=== PATIENT | male | born 1940 | race Caucasian/White ===

== ENCOUNTER 2018-10-23 05:12 | Inpatient (IN) ==
--- NOTE | 2018-10-20 09:55 | EKG Report ---
Test Performed on : 10/20/2018 09:40:57 AM Test Reason : pat Blood Pressure : / mmHG Vent. Rate : 078 BPM Atrial Rate : 078 BPM P-R Int : 148 ms QRS Dur : 096 ms QT Int : 366 ms P-R-T Axes : 082 007 063 degrees QTc Int : 417 ms Sinus rhythm. with frequent premature ventricular complexes. in a pattern of bigeminy. Otherwise normal ECG No previous ECGs available Confirmed by Javier Bragg MD ([id number]) on 10/21/2018 9:17:58 PM
[2018-10-20 10:23] LABS: HEMOGLOBIN 14.3 g/dL (14.0-18.0); MCH 28.7 PG (27-31); MCV 84.2 FL (81-99); MPV 10.8 FL (7.4-10.4); RBC 4.99 XMIL (4.7-6.1); RDW 20.4 % (11.5-14.5); WBC 9.86 X1000 (4.8-10.8)
[2018-10-20 10:34] LABS: CALCIUM 8.7 mg/dL (8.8-10.2); CREATININE 1.4 mg/dL (0.7-1.2); POTASSIUM 4.2 mmol/L (3.5-5.1)
[2018-10-23] MEDS ORDERED: LR 1,000 ML ONE ×2 (05:59→06:33)
[2018-10-23] MEDS ORDERED: KEFZOL 1 GM/D5W 1 GM/50 ML IVPB ONE (05:59)
[2018-10-23] MEDS ORDERED: ENTEREG ONE (06:02)
[2018-10-23] MEDS ORDERED: FENTANYL ONE (06:21)
[2018-10-23] MEDS ORDERED: DIPRIVAN 1% ONE (06:21)
[2018-10-23] MEDS ORDERED: MARCAINE 0.25% PF/EPI 1:200,000 ONE (06:33)
[2018-10-23] MEDS ORDERED: SODIUM CHLORIDE 0.9% ONE (06:43)
[2018-10-23] MEDS ORDERED: MARCAINE 0.25% ONE (07:00)
[2018-10-23] MEDS ORDERED: EXPAREL 1.3% ONE (07:01)
[2018-10-23] MEDS ORDERED: SODIUM CHLORIDE 0.9% 10 ML ONE ×2 (07:01→07:27)
[2018-10-23] MEDS ORDERED: XYLOCAINE-MPF 2% ONE (07:27)
[2018-10-23] MEDS ORDERED: NORCURON ONE ×2 (07:27→09:05)
[2018-10-23] MEDS ORDERED: DECADRON ONE (07:27)
[2018-10-23] MEDS ORDERED: ZOFRAN ONE (07:27)
[2018-10-23] MEDS ORDERED: EPHEDRINE ONE (07:27)
[2018-10-23] MEDS ORDERED: QUELICIN (DOSE) ONE (07:27)
--- NOTE | 2018-10-23 08:09 | Diag Imaging Result Doc PS360 ---
EXAM: OPERATIVE CHOLANGIOGRAM INDICATION: CHOLECYSTECTOMY LAPAROSCOPIC TECHNIQUE: COMPARISON: None. FINDINGS: A single spot fluoroscopic image of the opacified common bile duct was provided, which was performed during cholecystectomy by Dr. Humberto Desai. The common bile duct appears normal in caliber. No discrete filling defect is identified. There is minimal tortuosity at the distal aspect of the common bile duct as it tapers. IMPRESSION: As above. Please correlate with live fluoroscopic imaging. Electronically signed by Forrest hCavez 10/23/2018 8:08 AM
[2018-10-23 08:48] LABS: URINE SOURCE CATH
[2018-10-23 08:50] LABS: BILIRUBIN URINE NEGATIVE (NEGATIVE); BLOOD URINE SMALL (NEGATIVE); COLOR YELLOW; GLUCOSE URINE NEGATIVE (NEGATIVE); KETONE URINE 10 mg/dL (NEGATIVE); LEUKOCYTES URINE NEGATIVE (NEGATIVE); NITRITE URINE NEGATIVE (NEGATIVE); PROTEIN URINE NEGATIVE (NEGATIVE); SP GRAVITY URINE 1.014; TURBIDITY URINE CLEAR (CLEAR); UROBILINOGEN URINE NORMAL (NORMAL)
[2018-10-23 08:52] LABS: UR EPITHELIAL CELLS <10 /HPF (<10); URINE BACTERIA NEGATIVE /HPF; URINE RBC <10 /HPF (<10); URINE WBC <10 /HPF (<10)
[2018-10-23] MEDS ORDERED: NEOSTIGMINE ONE (09:25)
[2018-10-23] MEDS ORDERED: ROBINUL ONE (09:25)
[2018-10-23] MEDS ORDERED: ULTRAM PO PRN (12:07)
[2018-10-23] MEDS ORDERED: ZOFRAN IV PRN (12:08)
[2018-10-23] MEDS ORDERED: CHLORASEPTIC SPRAY MT PRN (12:52)
[2018-10-23] MEDS: TORADOL IV SCH ×2 (12:58→18:19)
[2018-10-23] MEDS ORDERED: LR 1,000 ML IV SCH (13:00)
--- NOTE | 2018-10-23 14:48 | OPERATIVE NOTE ---
PROCEDURE DATE: 10/23/2018 PREOPERATIVE DIAGNOSES: 1. Chronic cholecystitis with cholelithiasis. 2. Ascending colon cancer. POSTOPERATIVE DIAGNOSES: 1. Chronic cholecystitis with cholelithiasis. 2. Ascending colon cancer. PRINCIPAL PROCEDURES: 1. Laparoscopic cholecystectomy with intraoperative cholangiogram. 2. Robotic-assisted laparoscopic right colon resection with intracorporeal anastomosis. SURGEON: Gayle Desai MD. BIOPHARMACEUTICAL REP: Dr. Marek Sullivan. ANESTHESIA: General in addition to local and a TAP block. ESTIMATED BLOOD LOSS: 75 mL. DRAINS: None. INDICATIONS: Mr. Ronny Prasad is a 78-year-old, white male who was diagnosed with an ascending colon cancer after undergoing colonoscopy per Dr. Alfaro. A CT scan was performed and it documented gallstones but no evidence of metastatic colon cancer. Cholecystectomy with a right colon resection was recommended. FINDINGS: The liver appeared to be normal. His anterior abdominal wall was thin. The gallbladder was chronically inflamed and had at least one stone within it. We did do an intraoperative cholangiogram, which showed free flow of the dye into the duodenum without evidence of extrahepatic stones or obstruction. He had a tumor in the ascending colon just proximal to the cecum. There was no evidence of local spread of this tumor and there was no evidence of metastatic disease in the abdomen. I noticed no enlarged lymph nodes in the mesentery. DESCRIPTION OF PROCEDURE: Dr. Marek Sullivan was present for both of these procedures. He was present throughout the laparoscopic cholecystectomy with intraoperative cholangiogram and he was present throughout the robotic-assisted laparoscopic right colon resection. His presence was necessary for retraction and for instruction on moving along with the right colon. He also helped with fascial and skin closure at the end of the procedure. The patient underwent a bowel prep at home and presented to our outpatient surgery. He went to our robotic room and received IV Invanz. We began with the laparoscopic cholecystectomy. A Calles catheter tube was placed. His abdomen was prepped and draped within a sterile field. His arms were tucked to his side. I made a small incision right at the umbilicus and used a Veress needle to create a pneumoperitoneum. I then used a 12 mm trocar and I placed it through the left rectus muscle just above the umbilicus. A camera was placed through this port and the abdomen was explored for injury. There was none. I placed three other trocars. I placed an 8 mm trocar to the left of the falciform ligament, in the epigastrium under direct vision of the camera. I placed two 5 mm trocars in the right midclavicular and anterior axillary lines. Through our most lateral port, the gallbladder was grasped and retracted superiorly along with the right lobe of the liver. I had to use the spatula cautery and a grasper to take down some adhesions between the underside of the gallbladder and the transverse colon. I then dissected out the triangle of [place]ot using blunt dissection. I identified the cystic duct along its length. It was a long cystic duct. I placed a clip at the cystic duct-gallbladder junction. We made a small incision in the cystic duct using hook scissors and a Taut intraoperative cholangiogram catheter was used to perform the cholangiogram with the findings above. Once the cholangiogram was completed, the catheter was removed and two clips were placed proximally on the cystic duct. I divided the cystic duct between clips using hook scissors. The cystic artery was identified. A clip was placed distally and two proximally. It was divided using hook scissors. The spatula cautery was used to remove the gallbladder from the liver bed. There was no spillage of stones or bile during this procedure. We removed the gallbladder through our umbilical port. This port was placed back intra-abdominally and the area of operation was thoroughly inspected, irrigated, and the irrigation was removed with suction. There was no evidence of ongoing bleeding or bile leak. We then directed our attention to the robotic-assisted laparoscopic right colon resection. We have had to place some other trocars. We placed a 12 mm trocar in the upper left abdomen and I placed another 8 mm trocar in the midline suprapubic area, and then an assist port which was a 5 mm trocar in the left lower quadrant of the abdomen. My camera was just to the left of the umbilicus. I used the two 8 mm ports for instruments. I used the 12 mm port for the stapler and I used the 5 mm port for an court assistant port, mostly for suction. At this point, I went to the console. Dr. Sullivan was with me at the console at this point. I began by retracting the cecum superiorly and laterally so that I could identify the ileocolic vessels. I used the vessel seal to transect the fatty tissue around this pedicle. Then I came across the pedicle with the vessel seal. I fired the vessel seal several times before dividing the ileocolic pedicle. I divided it at its base with the superior mesenteric artery. I then dissected between the mesentery and the retroperitoneum laterally and superiorly until I saw the right lobe of the liver. I did this dissection by holding up on the right colon mesentery and dissecting downward to create my space between the mesentery and the retroperitoneum. I then held up the transverse colon at our division site with a [place] drain. I came up the mesentery of the transverse colon, preserving the middle colic artery again with the vessel seal. I then came across the lateral aspect of the colon from superior to inferior, mobilizing the right colon off the retroperitoneum. Again, all this was done using the vessel sealer. Once the colon was freed, I took down the mesentery going to the distal ileum, again with the vessel sealer. I used the robotic stapler to come across the distal ileum. Then I used another load of this robotic stapler to come across the transverse colon. At this point, the specimen was freed of the right colon from its mesenteric attachments and the retroperitoneum. I put it in the right upper quadrant above the right lobe of the liver. I brought the distal ileum and our transverse colon together. I made an incision in both of these bowel with the cautery so that I could place the robotic stapler in the small bowel and the colon and I brought them together by firing the stapler. The resulting defect, I closed after placing stay sutures both superiorly and inferiorly. I closed with a running 3-0 V-Loc stitch in two layers. The first layer was full-thickness running sutures to close the defect and then the second layer was Lembert stitches. We were happy with this closure. We were happy with our anastomosis. We did use Firefly to check for blood supply at our anastomosis prior to coming across it with the stapler and also after the anastomosis was completed. We then opened my 12 mm port site slightly more at the umbilicus. I used an Daron wound retractor and we removed the specimen through this port as we went from the console to the bedside. I then took time to close this enlarged wound in two layers. The first layer was a running 0 Vicryl stitch. The anterior layer was a running #1 Maxon stitch. I closed the other 15 mm trocar site with a [id number] 2-0 Vicryl stitch. All skin was closed with 4-0 Monocryl subcuticular stitches. Dressings were applied. The Calles catheter tube will remain. He will go to the recovery room and then be admitted to the floor. cc: Gayle Desai MD
[2018-10-23] MEDS: PERIDEX MT SCH (20:03)
[2018-10-23] MEDS: FLOMAX PO SCH (20:03)
[2018-10-24] MEDS: TORADOL IV SCH ×2 (01:44→06:01)
[2018-10-24] MEDS: OFIRMEV 1000 MG/ISOTONIC SOLN 1,000 MG/100 ML BOTTLE IV SCH ×4 (03:56→21:23)
[2018-10-24] MEDS: PERIDEX MT SCH ×2 (09:05→21:22)
[2018-10-24] MEDS: ZOLOFT PO SCH (09:05)
[2018-10-24] MEDS: NORVASC PO SCH (09:05)
[2018-10-24] MEDS: FLOMAX PO SCH ×2 (09:06→21:22)
[2018-10-24] MEDS: D5 1/2 NS + KCL 20 MEQ 1,000 ML IV SCH (12:51)
--- NOTE | 2018-10-24 14:05 | PROGRESS NOTE ---
DATE: 10/24/2018 SUBJECTIVE: Mr. Ronny Prasad is a 78-year-old white male who underwent a robotic assisted right hemicolectomy for cancer, and also a laparoscopic cholecystectomy with intraoperative cholangiogram for gallstones. He is now postop day 1. He is sitting up in bed. He is awake, and feels well. He does have nasal cannula on. He has had a low O2 saturation. We are having him use the incentive spirometry. We will get him up out of bed today. We will start Lovenox. We will stop his Calles catheter tube tomorrow morning. OBJECTIVE: His heart rate 72, blood pressure 148/55, and O2 saturation 95%. He is afebrile on no antibiotics. His multiple trocar incisions are dressed. PLAN: I will stop his intermittent compression hose. We will start him on Lovenox. We will advance his diet as tolerated. We will start to increase his activity. cc: Gayle Desai MD
[2018-10-24] MEDS: PRAVACHOL PO SCH (21:22)
[2018-10-25] MEDS: LOVENOX SUBQ SCH ×2 (04:58→08:29)
[2018-10-25] MEDS: OFIRMEV 1000 MG/ISOTONIC SOLN 1,000 MG/100 ML BOTTLE IV SCH ×5 (04:58→23:14)
[2018-10-25] MEDS: ZOLOFT PO SCH (10:32)
[2018-10-25] MEDS: NORVASC PO SCH (10:32)
[2018-10-25] MEDS: FLOMAX PO SCH ×2 (10:32→20:40)
[2018-10-25] MEDS: PERIDEX MT SCH ×2 (10:32→20:40)
[2018-10-25] MEDS: D5 1/2 NS + KCL 20 MEQ 1,000 ML IV SCH ×2 (16:21→18:14)
--- NOTE | 2018-10-25 18:45 | GENERAL SURGERY PROGRESS NOTE ---
DATE: 10/25/2018 SUBJECTIVE: The patient seems to be doing okay. He is tolerating his diet. He has had some bowel movements. He is still feeling a little sick to his stomach and still feels a little deconditioned. Overall, he has been hemodynamically stable. PLAN: I think we are looking at a discharge in the next 24 hours. cc: MD Gayle Carson MD
[2018-10-25] MEDS: PRAVACHOL PO SCH (20:39)
[2018-10-26] MEDS: LOVENOX SUBQ SCH (05:20)
[2018-10-26] MEDS: OFIRMEV 1000 MG/ISOTONIC SOLN 1,000 MG/100 ML BOTTLE IV SCH (05:20)
[2018-10-26] MEDS: D5 1/2 NS + KCL 20 MEQ 1,000 ML IV SCH (05:20)
[2018-10-26] MEDS: NORVASC PO SCH (09:18)
[2018-10-26] MEDS: PERIDEX MT SCH (09:18)
[2018-10-26] MEDS: FLOMAX PO SCH (09:19)
[2018-10-26] MEDS: ZOLOFT PO SCH (09:19)
--- NOTE | 2018-10-26 09:29 | GENERAL SURGERY PROGRESS NOTE ---
DATE: 10/26/2018 SUBJECTIVE: Patient seems to be doing well. OBJECTIVE: Vital Signs: Patient is currently afebrile. His vital signs stable. His O2 saturations are 94% on nasal cannula. General: No acute distress. Cardiovascular: Regular rate and rhythm. Lungs: Grossly clear. No increased labored breathing. Abdomen: Soft, appropriately tender. ASSESSMENT AND PLAN: A 78-year-old gentleman status post robotic assisted right hemicolectomy and cholecystectomy: 1. Postoperative state. At this time patient seems to be doing well from a surgical point of view. I think he can be discharged home. 2. We will get the nurses to ambulate in to see if his O2 saturation drops. If it does, we may need to consider home O2, but otherwise we will try to discharge him today. cc: MD Gayle Carson MD
[2018-10-26 11:18] VITALS: BP 157/82
--- NOTE | 2018-11-08 14:32 | DISCHARGE SUMMARY ---
ADMISSION DATE: 10/23/2018 DISCHARGE DATE: 10/26/2018 ADMITTING DIAGNOSIS: Ascending colon cancer. DISCHARGE DIAGNOSIS: Ascending colon cancer. PRINCIPAL PROCEDURE: 1. Laparoscopic cholecystectomy. 2. Robotic assisted laparoscopic right colon resection on 10/23/2018. DISCHARGE DIET: Regular. DISCHARGE DISPOSITION: He will return to our outpatient offices for followup in 7 to 10 days. DISCHARGE DISABILITY: Full. DISCHARGE MEDICATIONS: He is to return to his home medications. HOSPITAL COURSE: Mr. Ronny Prasad is a 78-year-old white male who was admitted on the day of surgery after undergoing a bowel prep. He underwent colonoscopy per Dr. Alfaro which documented a right-sided colon cancer and resection was recommended. He went to the operating room, where he initially underwent a laparoscopic cholecystectomy because he had gallstones and chronic cholecystitis. We did do an intraoperative cholangiogram, which was normal. After the laparoscopic cholecystectomy was complete, during that same anesthesia we proceeded with a robotic assisted laparoscopic right colon resection for right colon cancer. We did do an intracorporeal anastomosis, this was a stapled anastomosis, and we felt both procedures went well. After surgery, he went to the recovery room and then to the floor. We did not use an NG tube. He had a Calles catheter tube in place. We felt that his postoperative convalescence was normal and it was felt safe to discharge him home on postop day 3 under the care of his family with followup in our outpatient offices. At discharge, he was ambulating in the room. He had bowel activity and his incisions were intact and healing well. cc: Gayle Desai MD
== END 2018-10-26 11:32 | disposition home or self-care (01) | DRG 330 ==
LOC: SURHOLD 05:12 → EDSTATUS 07:00 → 4N 12:26
PROVIDERS: ADMIT Surgery; ATTEND Surgery